=== PATIENT | female | born 1980 | race Two or more races ===

== ENCOUNTER 2024-09-09 20:58 | Emergency (ER) | payer MEDICAID, SELFPAY ==
[2024-09-09 21:20] VITALS: BP 130/66; PULSE 103; RESP 18; TEMP 37.2; O2SAT 98
--- NOTE | 2024-09-09 21:24 | XR_ITS ---
Examination: Complete OB ultrasound, less than 14 weeks, transabdominal Date and time of exam: September 09, 2024 at 2134 hours INDICATIONS: Pelvic pain and vaginal bleeding beginning 3 days ago Technique: Obstetrical ultrasound images less than 14 weeks performed via transabdominal imaging Findings: Uterus 10.5 cm pole is 0.7 cm corresponds to 6 weeks 3 days gestational age No cardiac motion Right ovary 2.9 cm arterial flow Note ovary 3.2 cm arterial flow IMPRESSION: Intrauterine gestation corresponding to 6 weeks 3 days gestational age No cardiac motion Recommend short term follow-up transvaginal pelvic sonography to confirm embryonic viability
--- NOTE | 2024-09-09 21:25 | XR_ITS ---
Examination: Retroperitoneal ultrasound, complete Technique: Multiple high resolution grayscale images of the retroperitoneum obtained, including kidneys and bladder. Exam date and time:September 09, 2024 at 2149 hours INDICATIONS: Bilateral flank pain beginning 3 days ago FINDINGS: Right kidney 11.7 cm renal cortex 2.8 cm 6 mm possible upper pole calculus Left kidney 11.9 cm renal cortex 2.4 cm No hydronephrosis Bladder prevoid volume 55 cc patient unable to void IMPRESSION: Possible 6 mm upper pole right renal calculus No hydronephrosis
--- NOTE | 2024-09-09 21:25 | PD.EDRME ---
Rapid Medical Screening Exam RME Arrival date/time: 09/09/24 20:58 43 yo f present to ED for c/o fever, vag bleeding, recent dx of demises and UTI I have greeted and performed a focused initial assessment of this patient. A comprehensive ED assessment and evaluation of the patient, analysis of all test results, and completion of the medical decision making process will be conducted by additional ED providers. Chief Complaint: Fever Vital signs: Vital Signs Temperature 99.0 F 09/09/24 21:20 Pulse Rate 103 H 09/09/24 21:20 Respiratory Rate 18 09/09/24 21:20 Blood Pressure 130/66 09/09/24 21:20 Pulse Oximetry (%) 98 09/09/24 21:20 Oxygen Delivery Method Room Air 09/09/24 21:20
[2024-09-09] MEDS: ACETAMINOPHEN 325 MG TABLET 650 MG PO (21:56)
[2024-09-09 22:06] LABS: Basophils % (Auto) 0 % (0-2.5); Eosinophils % (Auto) 0 % (0-10); Hematocrit 34.4 % (36.0-46.0); Hemoglobin 11.6 g/dL (12.0-16.0); Immature Granulocytes % (Auto) 0 % (0-0); Immature Granulocytes Auto 0.03 Thou/mm3 (0.00-0.00); Lymphocytes # (Auto) 1.2 Thou/mm3 (1.0-4.8); Lymphocytes % (Auto) 13 % (10-50); Mean Corpuscular HGB Conc 33.7 g/dl (31.0-37.0); Mean Corpuscular Hemoglobin 27.2 pg (25.0-35.0); Mean Corpuscular Volume 81 fL (80-100); Monocytes # (Auto) 1.2 Thou/mm3 (0.0-0.8); Monocytes % (Auto) 13 % (0-12); Neutrophils # (Auto) 6.9 Thou/mm3 (1.8-7.7); Neutrophils % (Auto) 74 % (37-80); Nucleated Red Blood Cell % 0 /100 WBC (0); Platelet Count 220 Thou/mm3 (140-440); RDW Standard Deviation 44.4 fL (36.4-46.3); Red Blood Count 4.27 Miln/mm3 (4.00-5.20); White Blood Count 9.3 Thou/mm3 (3.6-11.0)
[2024-09-09 22:39] LABS: Alanine Aminotransferase 22 U/L (10-49); Albumin, Serum 4.1 gm/dL (3.5-5.0); Albumin/Globulin Ratio 1.3 (1.2-2.2); Alkaline Phosphatase 101 U/L (46-116); Anion Gap 8 (7-16); Aspartate Amino Transferase 28 U/L (0-34); BUN/Creatinine Ratio 10 Ratio (12-20); Bilirubin,Total 0.3 mg/dL (0.3-1.2); Blood Urea Nitrogen 6 mg/dL (9-23); Calcium 8.8 mg/dL (8.3-10.6); Calcium (Corrected) 8.8 mg/dL (8.5-10.1); Carbon Dioxide 21.8 mMol/L (20.0-31.0); Chloride 107 mMol/L (98-107); Creatinine (Component) 0.6 mg/dL (0.6-1.3); Globulin 3.1 gm/dL (2.3-3.5); Glucose 100 mg/dL (74-106); Lipase 35 U/L (12-53); Osmolality,Calculated 271 (275-295); Potassium 3.5 mMol/L (3.4-5.1); Sodium 137 mMol/L (136-145); Total Protein 7.2 gm/dL (5.7-8.2); eGFR > 60 See Note
[2024-09-09 23:05] LABS: Beta HCG,Quantitative 29891 mIU/mL (<5.0)
[2024-09-09 23:14] LABS: Collection Type, Urine Voided
[2024-09-09 23:25] LABS: Bacteria,Urine Rare; Bilirubin,Urine Negative (Negative); Blood,Urine 1+ (Negative); Clarity,Urine Clear (Clear/Hazy); Color,Urine Lt-Yellow (Lt Yel-Yel); Glucose, Urine Negative (Negative); Ketones,Urine Negative (Negative); Leukocyte Esterase,Urine Positive (Negative); Nitrite,Urine Negative (Negative); PH,Urine 6.5 (5.0-7.0); Protein,Urine Negative (Neg - Trace); RBC,Urine 5 /hpf (0-3); Specific Gravity,Urine 1.013 (1.001-1.035); Squamous Epithelial Cell,Urine 2 /hpf (0-5); Urobilinogen,Urine Negative mg/dL (0.0-1.0); WBC,Urine 15 /hpf (0-5)
[2024-09-09 23:35] VITALS: BP 120/83; PULSE 99; RESP 17; TEMP 36.9; O2SAT 96
--- NOTE | 2024-09-10 00:15 | EDNOTE_ITS ---
ED General RME/HPI General Chief complaint: Fever Stated complaint: FEVER, CHILLS, FAULKNER, RECENT MISCARRIAGE Time Seen by Provider: 09/09/24 21:39 Source: patient Arrival date/time: 09/09/24 20:58 Mode of arrival: ambulatory Limitations: no limitations RME / HPI RME / HPI narrative: 09/09/24 20:58 43 yo f G4 para 3 present to ED for c/o fever, vag bleeding, recent dx of demises and UTI I have greeted and performed a focused initial assessment of this patient. A comprehensive ED assessment and evaluation of the patient, analysis of all test results, and completion of the medical decision making process will be conducted by additional ED providers. Dr. Jones?s Main ED Evaluation: 43-year-old female with last menstrual period on 06/24/24 presents to the ED by private vehicle with a chief complaint of generally feeling unwell. She was evaluated at an outside facility ([facility]) yesterday for dysuria and reported one day of brown vaginal spotting. At that time, she was informed of a possible demise with a quantitative hCG level of approximately 30,000. She was prescribed cephalexin, which she started today. The patient reports a subjective headache but denies neck pain, visual changes, fever, nausea, vomiting, diarrhea, abdominal cramping, back pain, CVA tenderness, syncope, dizziness, or cough. She states she presented today due to a general worsening of how she feels, without any new specific symptoms. She has three living children. Related Data Allergies Allergy/AdvReac Type Severity Reaction Status Date / Time NKA* Allergy Uncoded 01/23/13 09:08 Review of Systems Review of Systems Systems Reviewed: All systems reviewed, normal except as documented Past Medical History Past Medical History CARDIAC: Negative Congestive Heart Failure RESPIRATORY: Negative Chronic Obstructive Pulmonary Disease (COPD) GENITOURINARY: Negative Renal Disease ENDOCRINE: Negative Diabetes Mellitus Type 1 or Diabetes Mellitus Type 2 Social History SMOKING STATUS: Never smoker ED Exam Narrative Physical exam: Patient appears clinically dehydrated with dry mucous membranes. Not diaphoretic in no acute distress General Limitations: Present no limitations General appearance: Present alert and in no apparent distress Eye Eye exam: Present normal appearance, PERRL and EOMI ENT ENT exam: Present normal exam and normal oropharynx Neck Neck exam: Present normal inspection, full ROM and trachea midline Chest Chest inspection: Present normal inspection and symmetric chest wall rise Respiratory Respiratory exam: Present normal lung sounds bilaterally Cardiovascular Cardiovascular exam: Present regular rate, normal rhythm and normal heart sounds Abdominal Exam Abdominal exam: Present soft and normal bowel sounds; Absent distention, tenderness, guarding, rebound or rigidity Extremities Exam Extremities exam: Present normal inspection and full ROM Back Exam Back exam: Present normal inspection and full ROM; Absent CVA tenderness (R) or CVA tenderness (L) Neurological Exam Neurological exam: Present alert, oriented X3 and CN II-XII intact Psychiatric Psychiatric exam: Present normal affect and normal mood Skin Skin exam: Present warm, dry, intact and normal color; Absent rash, cyanosis or diaphoresis Course Course Course Narrative: Patient placed in the bed. Labs and ultrasound are obtained. Quality Measures none Orders Category Date Time Status Bedside Influenza A&B Antigen Test NOW Care 09/09/24 21:24 Completed IV [Insert IV] STAT Care 09/10/24 01:21 Completed US OB <= 14 weeks fetus Stat Exams 09/09/24 21:24 Completed US renal BI Stat Exams 09/09/24 21:25 Completed ABO/RH Type Stat Lab 09/09/24 22:00 Completed Beta HCG,Quantitative Stat Lab 09/09/24 22:00 Completed CBC Stat Lab 09/09/24 22:00 Completed CMP [Comprehensive Metabolic Panel] Stat Lab 09/09/24 22:00 Completed Lipase Stat Lab 09/09/24 22:00 Completed UA [Urinalysis] Stat Lab 09/09/24 23:00 Completed Urine Culture Stat Lab 09/09/24 23:00 Received Acetaminophen Tab [Tylenol Tab] Med 09/09/24 21:23 Discontinued 650 mg PO X1 ONE Sodium Chloride 0.9% 1000 ml [Ns] 1,000 ml Med 09/10/24 01:05 Discontinued IV 999 mls/hr Sodium Chloride 0.9% 1000 ml [Ns] 1,000 ml Med 09/10/24 01:22 Discontinued IV 999 mls/hr cefTRIAXone [Rocephin] 1,000 mg Med 09/10/24 01:36 Discontinued SODIUM CHLORIDE 0.9% (Popper) [Ns 0.9% (P)] 50 ml IV X1 cefTRIAXone/D5w 1gm IV premix [Rocephin/D5w 1gm IV Med 09/10/24 01:30 Discontinued premix] 1 gm in 50 ml IV X1 cefTRIAXone/D5w 1gm IV premix [Rocephin/D5w 1gm IV Med 09/10/24 01:05 Pending premix] 50 ml IV Q12HR Reevaluation(s) Reevaluation #1: IV fluids are started. Time: 01:12 Vital Signs Vital signs: Vital Signs Temperature 99.0 F 09/09/24 21:20 Pulse Rate 103 H 09/09/24 21:20 Respiratory Rate 18 09/09/24 21:20 Blood Pressure 130/66 09/09/24 21:20 Pulse Oximetry (%) 98 09/09/24 21:20 Oxygen Delivery Method Room Air 09/09/24 21:20 [facility] Patient data External records reviewed:: [facility] previous records Clinical information provided by:: patient Social determinants that could affect healthcare access:: none Patient has the following chronic illnesses:: see PMH How is presenting disease/condition affected by chronic disease/condition?: no chronic disease Evaluation data The following diagnostics were reviewed and interpreted by me:: lab results and radiology exam(s) Lab and/or radiology exams considered but not ordered:: na Interpretation Summary: Examination: Complete OB ultrasound, less than 14 weeks, transabdominal Date and time of exam: September 09, 2024 at 2134 hours INDICATIONS: Pelvic pain and vaginal bleeding beginning 3 days ago Technique: Obstetrical ultrasound images less than 14 weeks performed via transabdominal imaging Findings: Uterus 10.5 cm pole is 0.7 cm corresponds to 6 weeks 3 days gestational age No cardiac motion Right ovary 2.9 cm arterial flow Note ovary 3.2 cm arterial flow IMPRESSION: Intrauterine gestation corresponding to 6 weeks 3 days gestational age No cardiac motion Recommend short term follow-up transvaginal pelvic sonography to confirm embryonic viability Dictated By: Gallo Miner MD Examination: Retroperitoneal ultrasound, complete Technique: Multiple high resolution grayscale images of the retroperitoneum obtained, including kidneys and bladder. Exam date and time:September 09, 2024 at 2149 hours INDICATIONS: Bilateral flank pain beginning 3 days ago FINDINGS: Right kidney 11.7 cm renal cortex 2.8 cm 6 mm possible upper pole calculus Left kidney 11.9 cm renal cortex 2.4 cm No hydronephrosis Bladder prevoid volume 55 cc patient unable to void IMPRESSION: Possible 6 mm upper pole right renal calculus No hydronephrosis Dictated By: Gallo Miner MD Medications Medications considered but not ordered:: na Medication administrations:: Medication Administration History Ceftriaxone Sodium/Dextrose (Rocephin/D5w 1gm Iv Premix) 50 mls @ 100 mls/hr IV Q12HR FRANCINE Stop: 09/17/24 01:04 Discontinued Medications Acetaminophen (Acetaminophen 325 Mg Tablet) 650 mg PO X1 ONE Stop: 09/09/24 21:24 Last Admin: 09/09/24 21:56 Dose: 650 mg Documented By: Sodium Chloride (Ns) 1,000 mls @ 999 mls/hr IV .Q1H1M ONE Stop: 09/10/24 02:05 Last Infusion: 09/10/24 02:32 Dose: Infused Documented By: Admin: 09/10/24 01:30 Dose: 999 mls/hr Documented By: CCT Ceftriaxone Sodium/Dextrose (Rocephin/D5w 1gm Iv Premix) 1 gm in 50 mls @ 100 mls/hr IV X1 ONE Stop: 09/10/24 01:59 Last Admin: 09/10/24 01:42 Dose: Not Given Documented By: CCT Non-Admin Reason: Duplicate Medication on eMAR Sodium Chloride (Ns) 1,000 mls @ 999 mls/hr IV .Q1H1M ONE Stop: 09/10/24 02:22 Last Infusion: 09/10/24 02:58 Dose: Infused Documented By: Admin: 09/10/24 01:51 Dose: 999 mls/hr Documented By: CCT Ceftriaxone Sodium 1,000 mg/ (Sodium Chloride) 50 mls @ 100 mls/hr IV X1 ONE Stop: 09/10/24 02:05 Last Infusion: 09/10/24 02:32 Dose: Infused Documented By: Admin: 09/10/24 01:46 Dose: 100 mls/hr Documented By: CCT as above Consultations Consultation(s) initiated? (list below): No Diagnosis Differential Diagnosis ED Complaint MDM: see MDM narrative Most likely diagnosis given after review of the tests above:: Urinary tract infection Admission Indicated Admission indicated?: not indicated Explain why admission is indicated or not indicated:: no abnormal findings indicating inpatient admission Admission Request Was there a request for admission?: No Disposition Plan Disposition Plan: Discharge Discharge Attestation Discharge Attestation: The patient and all family members were given an opportunity to ask questions and understood the discharge instructions. Discharge instructions specifically effects, indications for sooner follow up or return to the emergency department, and the expected course of current diagnosis. Patient condition: Stable Medical Decision Making MDM Narrative MDM Narrative: 43-year-old female G3 para 1 status post last menstrual period 12/22/2024 presented emergency department with dysuria. The patient was seen 24 hours ago until she had a demise. She picked up her cephalexin and has been taking that for UTI and today was having subjective fever and chills. Patient states that she has brown spotting but otherwise no vaginal clots and otherwise no abdominal pain or back pain. ED course: I was able to see her paperwork from the other hospital and it showed that she had a quant level approximately 38,000. Physical exam shows no tenderness palpation otherwise no CVA tenderness. Vital signs on repeat show a pulse of 99 with a blood pressure of 120/83. The patient is afebrile here at 98.4. MDM: Patient otherwise is not septic appearing and has normal white count. Other labs are interpreted and reviewed by me. White count is 9.3. Hemoglobin is 11/34, electrolytes are normal with normal BUN/creatinine. LFTs are normal. Beta-hCG is 29,000. Urine shows 15 white cells. The patient is not complaining of dysuria and otherwise has no evidence of pyelonephritis clinically. Plan to treat the patient with a liter of saline for dehydration and ceftriaxone. Differential diagnosis: UTI, endometritis, dehydration, electrolyte abnormality. RH positive Scribe Attestation: I, Liseth Dee, am scribing for and in the presence of Dr. Jones. Provider Notation: Although this document has been carefully reviewed, there may still be some phonetic and other typographical errors. These errors are purely grammatical due to imperfections in the software program and should not be construed in any way to compromise the substance of the patient's medical care during this visit. Differential Diagnosis Differential Diagnosis: see MDM narrative Medical Records Medical records reviewed: Yes I reviewed the patient's medical records. Lab Data Lab results reviewed: Yes I reviewed the patient's lab results. 09/09/24 22:00 09/09/24 22:00 Labs: Lab Results 09/09/24 09/09/24 Range/Units 22:00 23:00 WBC 9.3 (3.6-11.0) Thou/mm3 RBC 4.27 (4.00-5.20) Miln/mm3 Hgb 11.6 L (12.0-16.0) g/dL Hct 34.4 L (36.0-46.0) % MCV 81 (80-100) fL MCH 27.2 (25.0-35.0) pg MCHC 33.7 (31.0-37.0) g/dl RDW Std Deviation 44.4 (36.4-46.3) fL Plt Count 220 (140-440) Thou/mm3 Neut % (Auto) 74 (37-80) % Lymph % (Auto) 13 (10-50) % [place] % (Auto) 13 H (0-12) % Eos % (Auto) 0 (0-10) % Baso % (Auto) 0 (0-2.5) % Neut # (Auto) 6.9 (1.8-7.7) Thou/mm3 Lymph # (Auto) 1.2 (1.0-4.8) Thou/mm3 [place] # (Auto) 1.2 H (0.0-0.8) Thou/mm3 Eos # (Auto) 0.0 (0.0-0.5) Thou/mm3 Baso # (Auto) 0.0 (0.0-0.2) Thou/mm3 Immature Gran # (Auto) 0.03 H (0.00-0.00) Thou/mm3 Absolute Nucleated RBC 0.00 (0.00-0.00) Thou/mm3 Immature Gran % 0 (0-0) % Nucleated RBC % 0 (0) /100 WBC Sodium 137 (136-145) mMol/L Potassium 3.5 (3.4-5.1) mMol/L Chloride 107 (98-107) mMol/L Carbon Dioxide 21.8 (20.0-31.0) mMol/L Anion Gap 8 (7-16) BUN 6 L (9-23) mg/dL Creatinine 0.6 (0.6-1.3) mg/dL Estim Creat Clear Calc Not Performed. eGFR > 60 (60 - ) See Note BUN/Creatinine Ratio 10 L (12-20) Ratio Glucose 100 (74-106) mg/dL Calculated Osmolality 271 L (275-295) Calcium 8.8 (8.3-10.6) mg/dL Corrected Calcium 8.8 (8.5-10.1) mg/dL Total Bilirubin 0.3 (0.3-1.2) mg/dL AST 28 (0-34) U/L ALT 22 (10-49) U/L Alkaline Phosphatase 101 (46-116) U/L Total Protein 7.2 (5.7-8.2) gm/dL Albumin 4.1 (3.5-5.0) gm/dL Globulin 3.1 (2.3-3.5) gm/dL Albumin/Globulin Ratio 1.3 (1.2-2.2) Lipase 35 (12-53) U/L Beta HCG, Quant 76562 (<5.0) mIU/mL Ur Collection Type Voided Urine Color Lt-Yellow (Lt Yel-Yel) Urine Clarity Clear (Clear/Hazy) Urine pH 6.5 (5.0-7.0) Ur Specific [place] 1.013 (1.001-1.035) Urine Protein Negative (Neg - Trace) Urine Glucose (UA) Negative (Negative) Urine Ketones Negative (Negative) Urine Blood 1+ A (Negative) Urine Nitrite Negative (Negative) Urine Bilirubin Negative (Negative) Urine Urobilinogen (Auto) Negative (0.0-1.0) mg/dL Ur Leukocyte Esterase Positive (Negative) Urine RBC 5 H (0-3) /hpf Urine WBC 15 H (0-5) /hpf Ur Squamous Epith Cells 2 (0-5) /hpf Urine Bacteria Rare (None) Blood Type O Positive Blood Bank Wristband ID Yes Radiology Data Radiology results reviewed: Yes I reviewed the patient's radiology results. Discharge Plan Plan Patient Disposition: HOME (Self Care) Patient condition on transfer: Stable Prescriptions/Referrals Referrals: No Primary/Family,Physician [Primary Care Provider] - In 1 week (You can return to the emergency department in 48 hours for recheck here.) Problem List Clinical Impression: Urinary tract infection, demise Patient/Caregiver Discharge Instructions Education Materials: ED Possible Miscarriage ..., ED CYSTITIS Female Adult Additional Instructions: 1. Return tomorrow in the next 24 to 48 hours for recheck. Your urine culture will not be back for the next 72 hours so you need to follow- up with your primary care to get the results of that. If it is not sensitive to the medication that we picked we will call you in the next 72 hours. 2. Take your medications as prescribed. Stay hydrated with Pedialyte and Gatorade. 3. As per the paperwork from [facility] and your comparison to your ultrasound today that there is no cardiac activity and it is likely that you or having a miscarriage. 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 Today your quant level is 28,000. Your ultrasound shows G sac without heart tone. Please return to emergency department for worsening symptoms, you have a fever, you are dizzy and cannot tolerate liquids, or any other concerns peer Print Language: Nepalese Stand Alone Forms: Lisa Award Info., Patient Portal Info Letter
[2024-09-10] MEDS: SODIUM CHLORIDE 0.9% 1000 ML 1,000 ML 999 ML IV ×2 (01:30→01:51)
[2024-09-10] MEDS: cefTRIAXone 1,000 MG in SODIUM CHLORIDE 0.9% (Popper) 50 ML 100 MG IV (01:46)
[2024-09-10 01:58] VITALS: BP 116/79; PULSE 83; RESP 16; TEMP 37; O2SAT 100
[2024-09-10 03:23] VITALS: BP 123/89; PULSE 95; RESP 18; TEMP 36.7; O2SAT 100
== END 2024-09-10 03:25 | disposition home or self-care (01) ==
PROVIDERS: Physician Assistant; Emergency Provider Emergency Medicine
DX: N39.0 Urinary tract infection, site not specified (principal); O02.1 Missed abortion
CPT/HCPCS: 36415; 76770; 76801; 80053; 81001; 83690; 84702; 85025; 86900; 86901; 87086; 87400; 96365; 99284; J0696; J7030; J7050; A9270

== ENCOUNTER 2024-10-30 10:59 | Outpatient (AMB) | payer MEDICAID, SELFPAY ==
[2024-10-30 11:41] VITALS: BP 145/96; PULSE 94; RESP 18; TEMP 36.2; O2SAT 98
--- NOTE | 2024-10-30 11:41 | AMB.GYNCLNOT ---
Vital Signs 10/30/24 11:41 Weight 79.549 kg Weight Measurement Method Standing Scale BP 145/96 H Blood Pressure Source Automatic Cuff Blood Pressure Location Left Upper Arm Position Sitting Respiration 18 Pulse 94 Pulse Source Monitor Temp 97.2 F Temp Source Oral Pulse Oximetry (%) 98 Oxygen Delivery Method Room Air Allergies/Home Meds Allergies & Medications Allergies NKA* Allergy (Uncoded 10/30/24 11:42) Medication Reconciliation No Known Home Medications 10/30/24 [History Confirmed 10/30/24] Intake Visit Data Collection New Patient or Established: Established Patient (seen at [facility] within 3 years) Reason for Visit:: TUBAL CONULT Seen by Clinical Staff ONLY (RN/MA): No Career Services Assistant Required: Yes Career Services Assistant's name/title: ELEAZAR CONNELL MA Do You Feel Safe at Home: Yes Authorities Contacted: N/A PCP or OBGYN visit in last 3 months: Yes Date of Last PCP or OBGYN visit: 09/10/24 Hx Now: No Are you currently on any form of Control: No Pain Present Currently: No Pain Scale Used: Lino-Beckford/Numerical Pain scale:: 0 Smoking Status Smoking Status: Never smoker Engineer First Assistant history Engineer First Assistant History Menstrual regularity: regular Flow: normal Monthly: Yes Age at menarche: 14 Menopausal: No Currently sexually active: Yes 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 1. Little interest or pleasure in doing things: not at all 2. Feeling down, depressed, or hopeless: not at all Total score: 0 PHQ-9 3. Trouble falling or staying asleep, or sleeping too much: Not at all 4. Feeling tired or having little energy: Not at all 5. Poor appetite or overeating: Not at all 6. Feeling bad about yourself - or that you are a failure or have let yourself or your family down: Not at all 7. Trouble concentrating on things, such as reading the newspaper or watching television: Not at all 8. Moving or speaking so slowly that other people could have noticed? - Or the opposite - being so fidgety or restless that you have been moving around a lot more than usual: not at all 9. Thoughts that you would be better off or of hurting yourself in some way: Not at all Total score: 0 If you checked off any problems, how difficult have these problems made it for you to do your work, take care of things at home, or get along with other people?: not difficult at all Source: Developed by Drs. Shekhar Chu, Queenie Farah, Sivakumar Patel and colleagues, with an educational wendi from [employer]. Depression screen completed yes Social History Living Situation History Marital Status: Lives With: Family Housing: House Tobacco History Smoking Status: Never smoker Second Hand Smoke Exposure: No Alcohol History Alcohol Intake: Never Domestic Abuse History Do You Feel Safe at Home: Yes Office Procedures OB Clinic LOC & Office Proc's Nursing/Assessment Patient Status: Established Patient OB Clinic Nursing Assessment: Medication Reconciliation, Update PMH in EMR and Vital Signs OB Clinic Coordination of Care: Education Complex Pt/Fam, Consent,records obtained, informed consent, Lab and Imaging orders and Staff clarify orders Established Patient Charge Established Patient Point Assignment: 80 Established Patient Point Charge: EP Level 3 (80-115)
== END 2024-10-30 12:05 | disposition home or self-care (01) ==
LOC: HODSOBC 10:59
PROVIDERS: Supervising Provider Obstetrics & Gynecology; Visit Provider Obstetrics & Gynecology
DX: Z30.2 Encounter for sterilization (principal)
CPT/HCPCS: 99213; G0463

== ENCOUNTER 2024-12-14 05:35 | Day surgery (SDC) | payer MEDICAID, SELFPAY ==
[2024-12-12 09:15] VITALS: BMI 30.8
[2024-12-12 11:19] LABS: Basophils # (Auto) 0.1 Thou/mm3 (0.0-0.2); Basophils % (Auto) 1 % (0-2.5); Eosinophils # (Auto) 0.2 Thou/mm3 (0.0-0.5); Eosinophils % (Auto) 3 % (0-10); Hematocrit 30.6 % (36.0-46.0); Hemoglobin 9.2 g/dL (12.0-16.0); Immature Granulocytes Auto 0.02 Thou/mm3 (0.00-0.00); Lymphocytes # (Auto) 1.9 Thou/mm3 (1.0-4.8); Lymphocytes % (Auto) 28 % (10-50); Mean Corpuscular HGB Conc 30.1 g/dl (31.0-37.0); Mean Corpuscular Hemoglobin 22.8 pg (25.0-35.0); Mean Corpuscular Volume 76 fL (80-100); Monocytes # (Auto) 0.7 Thou/mm3 (0.0-0.8); Monocytes % (Auto) 10 % (0-12); Neutrophils # (Auto) 4.0 Thou/mm3 (1.8-7.7); Neutrophils % (Auto) 58 % (37-80); Nucleated Red Blood Cell # 0.00 Thou/mm3 (0.00-0.00); Nucleated Red Blood Cell % 0 /100 WBC (0); Platelet Count 314 Thou/mm3 (140-440); RDW Standard Deviation 39.3 fL (36.4-46.3); Red Blood Count 4.04 Miln/mm3 (4.00-5.20); White Blood Count 6.9 Thou/mm3 (3.6-11.0)
[2024-12-12 11:22] LABS: HCG,Qualitative Serum Negative
[2024-12-12 11:31] LABS: Alanine Aminotransferase 24 U/L (10-49); Albumin, Serum 4.4 gm/dL (3.5-5.0); Albumin/Globulin Ratio 1.4 (1.2-2.2); Alkaline Phosphatase 125 U/L (46-116); Anion Gap 6 (7-16); Aspartate Amino Transferase 30 U/L (0-34); BUN/Creatinine Ratio 14 Ratio (12-20); Bilirubin,Total 0.4 mg/dL (0.3-1.2); Blood Urea Nitrogen 11 mg/dL (9-23); Calcium 9.2 mg/dL (8.3-10.6); Calcium (Corrected) 9.2 mg/dL (8.5-10.1); Carbon Dioxide 24.0 mMol/L (20.0-31.0); Chloride 111 mMol/L (98-107); Creatinine (Component) 0.8 mg/dL (0.6-1.3); Estimated Creatinine Clearance 91.9 mL/min (>60); Globulin 3.1 gm/dL (2.3-3.5); Glucose 99 mg/dL (74-106); Osmolality,Calculated 280 (275-295); Potassium 4.3 mMol/L (3.4-5.1); Sodium 141 mMol/L (136-145); Total Protein 7.5 gm/dL (5.7-8.2); eGFR > 60 See Note
--- NOTE | 2024-12-13 14:57 | SUR.PREOP ---
Pt notified to come in at 0545 tomorrow.
[2024-12-14] VITALS (7 sets, daily range): BP systolic 103–136; BP diastolic 65–89; PULSE 77–100; RESP 13–20; TEMP 36.2–36.8; O2SAT 99–100; BMI 31.4
[2024-12-14] MEDS: RINGERS LACTATED 1000 ML 1,000 ML 20 ML IV (06:45)
--- NOTE | 2024-12-14 08:21 | PD.GYNPROC ---
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 Identity was confirmed by double identifiers and she was placed on the operating table.? General anesthesia was administered and airway was secured.? Patient was now positioned in the [facility] The abdomen and perineum were prepped in the usual sterile fashion and sterile drapes were applied.? The bladder was emptied using a straight catheter.? A sponge stick was placed in the vagina for uterine manipulation.? Attention was now turned to the patient's abdomen.? A 5 mm incision was made at the base of the umbilicus using a scalpel.? Laparoscopic entry was accomplished under direct visualization using Stirling Ultracold([employer]) laparoscopic trocar.? Once intra-abdominal placement was confirmed pneumoperitoneum was insufflated to 15 cm.? The camera was now introduced into the abdomen and a preliminary survey was performed.? The uterus and both adnexa were noted to be within normal limits.? Another overall survey of the upper abdomen was performed and no gross abnormalities were noted.? A pair of accessory ports were placed 2 cm superior and medial to the ASIS bilaterally.? The Enseal was used to perform a salpingectomy in the usual fashion. The dissection sites were now observed to note satisfactory hemostasis.? All instruments were now withdrawn.? Pneumoperitoneum was desufflated.? The laparoscopic ports were removed.? The skin was now closed using 4-0 Monocryl in a subcuticular fashion.? The patient's skin was now cleaned, sterile dressings were applied.? Patient was undraped, and general anesthesia was reversed and she was transferred to the recovery room in a stable and awake condition. The patient tolerated the entire procedure well.? All instrument, sponge and lap counts are correct x2.? No complications were encountered. Specimen: left tube and right tube Estimated blood loss (ml): 5 Complications: none Surgical staff Operation Date: 12/14/24 07:45 Case Staff Anesthesiologist: Pradeep Marte RN First Assistant: Vale Clifton Diagnosis Discharge Diagnosis (1) Other acute postprocedural pain: Status: Acute (2) Encounter for sterilization: Status: Acute Problem List Completed Was Problem List Reviewed/Reconciled?: Yes
--- NOTE | 2024-12-14 08:23 | SUR.PHASEI ---
0823: Pt. arrived with oral airway in place, vitals stable, breathing unlabored, no signs of distress, x3 dermabond sites to ABD CDI, no active bleed noted, report received from MD Marte and Vikash LEAVITT.
--- NOTE | 2024-12-14 09:15 | SUR.PHASEII ---
0915: Pt. AAOx4, vitals stable, breathing unlabored, no complaint of pain or nausea, x3 dermabond sites to ABD CDI, no active bleed noted, pt. tolerated sips of water well, pt. ambulated to wheelchair with steady gait and no assist, no complications. Gave discharge instructions to the pt. and her ride using charge gang weigher, both verbalized understanding and had no further questions. Pt. left with all personal belongings.
== END 2024-12-14 09:15 | disposition home or self-care (01) ==
PROVIDERS: PCP Family Medicine; Referring Provider Obstetrics & Gynecology; Visit Provider Obstetrics & Gynecology
PROC: (CPT 58720; principal; 2024-12-14 07:30)
DX: Z30.2 Encounter for sterilization (principal)
CPT/HCPCS: 58661; 36415; 80053; 84703; 85025; 86850; 86900; 86901; A4217; A4649; J0131; J1100; J1885; J2250; J2405; J2704; J3010; J3490; J7120

== ENCOUNTER → 2025-04-23 | Outpatient (CLI) | payer MEDICAID, SELFPAY ==
--- NOTE | 2025-04-23 14:15 | XR_ITS ---
Examination: Screening digital mammography, bilateral Computer aided detection 3-D breast Tomosynthesis, bilateral Date and time of exam: April 23, 2025, 1404 hours, no priors Indication: Screening Technique: Nonmagnified MLO, CC views of the breasts to been obtained, reconstructed from 3-D Tomosynthesis images. R2 computer aided detection program utilized for evaluation of suspicious masses and/or abnormal calcifications. 3-D Tomosynthesis images obtained. Findings: The breasts are heterogeneously dense, which may obscure small masses 10 mm focal asymmetry upper outer left breast posterior depth Impression: BI-RADS Category 0: Incomplete: Need additional imaging evaluation Recommend follow-up spot tomographic views of 10 mm focal asymmetry upper outer left breast as well as left breast sonography to complete the work-up.
== END | disposition home or self-care (01) ==
LOC: CDIM 13:54
PROVIDERS: Referring Provider Family Medicine; Visit Provider Family Medicine
DX: Z12.31 Encounter for screening mammogram for malignant neoplasm of breast (principal); N64.89 Other specified disorders of breast; R92.8 Other abnormal and inconclusive findings on diagnostic imaging of breast
CPT/HCPCS: 77063; 77067